=== PATIENT | male | born 1995 | race Caucasian/White ===

== ENCOUNTER 2024-08-14 20:50 | Emergency (ER) | payer BC ==
[~2024-08-14] VITALS: Ht 188 cm; Wt 99.8 kg
[2024-08-14 20:51] VITALS: BP 122/80; PULSE 68; RESP 16; TEMP 97
--- NOTE | 2024-08-14 20:57 | ERN ---
ED Note History of Present Illness Stated Complaint: HEAD INJURY Chief Complaint: Head Injury Time Seen by MD: 20:55 Time Seen by Midlevel: 20:55 Dictation: Mr. Gonzalez is a 29 year old gentleman with history of chronic back pain and TBI (traumatic brain injury) who was transported via law enforcement for medical clearance. It was reported that he was banging his head on the bars of the assisted. Patient states "Im fine" He denies LOC, headache, dizziness, focal weakness/paresthesia, seizure, or vision changes. He has no open wounds. He denies intent to harm self or others. [facility] requesting medical clearance exam. 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 EYES: Patient denies any visual symptoms. EARS, NOSE, AND THROAT: No difficulties with hearing. No symptoms of rhinitis or sore throat. CARDIOVASCULAR: Patient denies chest pains, palpitations, orthopnea and paroxysmal nocturnal dyspnea. RESPIRATORY: No dyspnea on exertion, no wheezing or cough. GI: No nausea, vomiting, diarrhea, constipation, abdominal pain, hematochezia or melena. : No urinary hesitancy or dribbling. No nocturia or urinary frequency. No abnormal urethral discharge. MUSCULOSKELETAL: No myalgias or arthralgias. NEUROLOGIC: No chronic headaches, no seizures. Patient denies numbness, tingling or weakness. PSYCHIATRIC: Patient denies problems with mood disturbance. No problems with anxiety. ENDOCRINE: No excessive urination or excessive thirst. DERMATOLOGIC: Patient denies any rashes or skin changes. Initial Vital Sign VS Vital Signs Date Time Temp Pulse Resp B/P (MAP) Pulse Ox O2 Delivery O2 Flow Rate FiO2 08/14/24 20:51 97.0 68 16 122/80 100 Room Air Physical Exam Dictation Vital signs: Reviewed. Afebrile. Constitutional: No acute distress. Smells of ETOH. In custody [facility] Head/Face: Normocephalic, atraumatic. Eyes: Periorbital areas with no swelling, redness, or edema. Lids and lashes are normal. Sclera anicteric. Pupils equal, round, reactive to light.Injected. ENT: Pinnas intact and no signs of trauma or erythema. Ear canals clear and no discharge. TMs no erythema. No nasal discharge or bleeding noted. Oropharynx with no exudate, redness, swelling, masses, exudates, or evidence of obstruction. Uvula midline. Mucous membranes moist. Neck: Trachea midline, no masses palpated, and no cervical lymphadenopathy. No swelling. Supple, full range of motion. Chest/Axilla: No tenderness, no crepitus, no paradoxical movement, no retractions. Cardiovascular: Regular rate, regular rhythm, no murmur, no gallops. Symmetric pulses. No peripheral edema. Normotensive. Respiratory: Respirations even and unlabored. Lung sounds clear; no wheezes, rales or rhonchi. Room air spo2 100%. Gastrointestinal: Inspection is normal. No distention is appreciated. Bowel sounds are normal. No mass or organomegaly . There is no tenderness. No rebound. No rigidity. No voluntary or involuntary guarding. No Sánchez's sign. Drinking juice. Neurological: Normal speech, gross motor function intact, gross sensory function intact. No focal weakness/Paresthesia. STANISLAW 3mm/brisk. Musculoskeletal/Extremities: All extremities have full range of motion, no pain or tenderness on palpation. Symmetric pulses. Moves all extremities equal/strong. Ambulating with steady gait. Integumentary: Intact. Skin is normal color, warm and dry. Cap refill less than 3 seconds. ED Course ED Course Vital Signs Date Time Temp Pulse Resp B/P (MAP) Pulse Ox O2 Delivery O2 Flow Rate FiO2 08/14/24 20:51 97.0 68 16 122/80 100 Room Air Uneventful ED course. Vital signs stable. Patient is able to ambulate with steady gait. Tolerating p.o. fluids with no nausea or vomiting. Patient denies headache. He has no open wounds, abrasions, contusions or hematomas. Patient denies additional injury or illness. He will be released in custody of [facility]'s officers for incarceration. Medical Decision Making MDM MDM: Differential diagnosis: Contusion, hematoma, suicidal ideation, closed head injury Rationale: Tests considered and ordered secondary to shared decision making include: Neuro exam, physical exam Previous outside records reviewed: Old ER visits. Risk of complication and/or morbidity or mortality of patient management: None Medications-Per medication reconciliation Need for hospitalization: Patient does not meet criteria for hospitalization. Need for emergency major/minor surgery: No There are no social concerns with this patient. Prescription drug management Prescriptions will include symptomatic care Patient's prior external medical records from other ER visits were reviewed by me as indicated. Prior testing and results from previous visits were reviewed. Prior tests were taken into account with medical decision making and resource utilization, independent historian/historians were used to obtain complete medical history. I independently interpreted the test that were performed, results were reviewed by me and considered findings on radiology if ordered. Medical management and examination interpretation discussions were had by me with other qualified healthcare professionals as indicated for the patient's care. DX & DISP Disposition: Discharge Departure Impression: Primary Impression: Medical clearance for incarceration Condition: Stable Additional Instructions: Do not being and on cell bars; utilize alternative methods such as counting or meditation to curb your frustration. Return to the emergency department for any worsening of symptoms or concerns. Referrals: SELF,REFERRAL (PCP) Time of Disposition: 21:15 VIVI HO NP Aug 14, 2024 20:57
--- NOTE | 2024-08-14 21:19 | NUR ---
PO FLUIDS PROVIDED
--- NOTE | 2024-08-14 21:35 | NUR ---
SO DIOGENES # [facility] Head
== END 2024-08-14 21:36 | disposition home or self-care (01) ==
LOC: EDH 20:50 → EEVIPCON 20:50 → EDH 21:36
DX: S09.8XXA Other specified injuries of head, initial encounter (principal); X58.XXXA Exposure to other specified factors, initial encounter; Y93.89 Activity, other specified; Y92.89 Other specified places as the place of occurrence of the external cause; Y99.8 Other external cause status
CPT/HCPCS: 99281; 99282; 99283